=== PATIENT | male | born 1990 | race Caucasian/White ===

== ENCOUNTER 2016-08-07 23:35 | Emergency (ER) | payer OTHER ==
[2016-08-07 23:40] VITALS: RESP 18; TEMP 97.9
[2016-08-08] MEDS ORDERED: ACETAMINOPHEN IV (For NPO) 1,000 MG in EMPTY BAG 1 BAG IVPB STA (00:02)
[2016-08-08] MEDS ORDERED: SODIUM CHLORIDE 0.9% 500 ML IV ONE (00:02)
--- NOTE | 2016-08-08 00:14 | ED ---
General Adult HPI - General Chief complaint: Headache Stated complaint: L Head Pain Time Seen by Provider: 08/07/16 23:45 Source: patient, RN notes reviewed Mode of arrival: ambulatory Limitations: no limitations - History of Present Illness Initial comments: Patient is a 25-year-old male presents to the emergency room for evaluation of left-sided scalp tenderness. Patient states symptoms began about 2 weeks ago. Patient states symptoms began on the left top portion of his scalp and has been radiating down to the left side of his neck. Patient states he's having bilateral neck pain as well. Patient does admit he has a history of migraines. Patient states this does not feel like his normal migraines. Patient denies any throbbing headache. Patient denies changes in vision. Patient denies photophobia or phonophobia. Patient denies any pain while moving his neck. Patient denies any numbness or tingling in his extremities. Patient denies recent head trauma. Patient denies any rashes noted on the scalp. Patient does state that he has a mole on the posterior portion of his scalp that he has had for many years. Patient's girlfriend is present with patient and states that she's noticed it has gotten larger. Patient denies following-up with the time study observer. Patient states every time he touches his scalp it feels very "sensitive". Patient states he is up-to-date on all his immunizations. Patient denies fevers, chills, bodyaches, nausea, vomiting, dizziness. - Related Data Home Medications Medication Instructions Recorded Confirmed No Known Home Medications [No 08/07/16 08/07/16 Known Home Medications] Allergies Allergy/AdvReac Type Severity Reaction Status Date / Time bee pollen Allergy Anaphylaxis Verified 08/07/16 23:40 Review of Systems ROS Statement: Those systems with pertinent positive or pertinent negative responses have been documented in the HPI. ROS Other: All systems not noted in ROS Statement are negative. Past Medical History Past Medical History: Hypertension, Musculoskeletal Disorder Additional Past Medical History / Comment(s): hx. migraines History of Any Multi-Drug Resistant Organisms: None Reported Past Surgical History: Orthopedic Surgery Additional Past Surgical History / Comment(s): right bunionectomy, ACL repair Past Anesthesia/Blood Transfusion Reactions: No Reported Reaction Past Psychological History: Anxiety, Bipolar, Depression Smoking Status: Current every day smoker Past Alcohol Use History: None Reported Past Drug Use History: Marijuana Additional Drug Use History / Comment(s): occasional use - Past Family History Father Family Medical History: No Reported History General Exam - General Exam Comments Initial Comments: Sitting in exam room in no acute distress. Limitations: no limitations General appearance: alert, in no apparent distress Head exam: Present: atraumatic, normocephalic, normal inspection Eye exam: Present: normal appearance, PERRL, EOMI Pupils: Present: normal accommodation ENT exam: Present: normal exam, normal oropharynx, mucous membranes moist, TM's normal bilaterally, normal external ear exam Neck exam: Present: normal inspection, full ROM Respiratory exam: Present: normal lung sounds bilaterally. Absent: respiratory distress Cardiovascular Exam: Present: regular rate, normal rhythm, normal heart sounds Extremities exam: Present: normal inspection Back exam: Present: normal inspection Neurological exam: Present: alert, oriented X3, CN II-XII intact, normal gait Psychiatric exam: Present: normal affect, normal mood Skin exam: Present: warm, dry, intact, normal color, other (Fleshy appearing, irregular, protruding lesion on the posterior parietal portion of the scalp). Absent: rash Course Vital Signs 08/07/16 23:38 Temperature 97.9 F Pulse Rate 120 H Respiratory 18 Rate Blood Pressure 131/85 O2 Sat by Pulse 97 Oximetry Medical Decision Making - Medical Decision Making Patient is a 25-year-old male presents to the emergency room for evaluation of scalp sensitivity and lesion on scalp. Electrolytes show no significant findings. Will have patient follow-up with time study observer and neurologist for further evaluation. Patient states he understands everything that was discussed with him. Return parameters discussed. Case discussed with Dr. Guardado. - Lab Data Result diagrams: 08/08/16 00:10 Lab Results 08/08/16 Range/Units 00:10 Sodium 140 (137-145) mmol/L Potassium 3.9 (3.5-5.1) mmol/L Chloride 101 (98-107) mmol/L Carbon Dioxide 25 (22-30) mmol/L Anion Gap 14 mmol/L BUN 15 (9-20) mg/dL Creatinine 0.80 (0.66-1.25) mg/dL Est GFR (MDRD) Af Amer >60 (>60 ml/min/1.73 sqM) Est GFR (MDRD) Non-Af >60 (>60 ml/min/1.73 sqM) Glucose 96 (74-99) mg/dL Calcium 10.2 (8.4-10.2) mg/dL Magnesium 2.3 (1.6-2.3) mg/dL Total Bilirubin 0.8 (0.2-1.3) mg/dL AST 27 (17-59) U/L ALT 32 (21-72) U/L Alkaline Phosphatase 75 (38-126) U/L Total Protein 8.4 H (6.3-8.2) g/dL Albumin 4.9 (3.5-5.0) g/dL Disposition Clinical Impression: Distal paresthesia, Change in mole Disposition: HOME SELF-CARE Condition: Good Instructions: Paresthesia (ED), Atypical Mole (ED) Additional Instructions: Take Tylenol or Motrin as needed for pain. Please follow-up with primary care provider or neurologist for further evaluation. Please follow-up with time study observer for reevaluation of lesion on scalp. If any new symptom arises or symptoms worsen, return to ER as soon as possible. Referrals: Jet Arthur MD [Primary Care Provider] - 1-2 days Christopher Mireles MD [STAFF PHYSICIAN] - 1-2 days Steffen Angulo MD [STAFF PHYSICIAN] - 1-2 days Time of Disposition: 00:46
[2016-08-08 00:35] LABS: ALT 32 U/L (21-72); AST 27 U/L (17-59); Alkaline Phosphatase 75 U/L (38-126); Anion Gap 14 mmol/L; Blood Urea Nitrogen 15 mg/dL (9-20); Calcium 10.2 mg/dL (8.4-10.2); Carbon Dioxide 25 mmol/L (22-30); Chloride 101 mmol/L (98-107); Glucose 96 mg/dL (74-99); Magnesium 2.3 mg/dL (1.6-2.3); Non-African American GFR(MDRD) >60 (>60 ml/min/1.73 sqM); Potassium 3.9 mmol/L (3.5-5.1); Sodium 140 mmol/L (137-145); Total Bilirubin 0.8 mg/dL (0.2-1.3); Total Protein 8.4 g/dL (6.3-8.2)
[2016-08-08] MEDS ORDERED: predniSONE 20 MG TAB PO STA (00:53)
[2016-08-08 01:12] VITALS: BP 149/98; PULSE 92
== END 2016-08-08 01:11 | disposition home or self-care (01) ==
LOC: EC 23:35
DX: D22.4 Melanocytic nevi of scalp and neck (principal); R20.9 Unspecified disturbances of skin sensation; R51 Headache; F17.200 Nicotine dependence, unspecified, uncomplicated; Z91.030 Bee allergy status
CPT/HCPCS: 36415; 80053; 83735; 99284; 96365; J0131; J7512

== ENCOUNTER 2018-02-28 16:47 | Emergency (ER) | payer OTHER ==
[2018-02-28 17:01] VITALS: BP 142/82; PULSE 86; RESP 17; TEMP 97.9
--- NOTE | 2018-02-28 17:16 | ED ---
Upper Extremity HPI - General Chief Complaint: Extremity Injury, Upper Stated Complaint: hand pain Time Seen by Provider: 02/28/18 16:55 Source: patient, RN notes reviewed Mode of arrival: ambulatory Limitations: no limitations - History of Present Illness Initial Comments: This is a 27-year-old male who presents to the emergency department with chief complaint of right hand pain. Patient states that for the past one week he has been experiencing pain in the third and fourth fingers on his right hand. He states that pain is made worse with bending the fingers. He states that he feels pain all the way up to his elbow with movement of the fingers. He also reports feeling numbness and tingling that shoots down his arm. He denies any injuries or trauma. States he has tried taking ibuprofen a couple of times with minimal relief. 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 Denies recent fevers or chills , chest pain shortness breath, abdominal pain, nausea or vomiting. - Related Data Previous Rx's Medication Instructions Recorded Ibuprofen 600 mg PO Q6HR #20 tablet 02/28/18 Allergies Allergy/AdvReac Type Severity Reaction Status Date / Time bee pollen Allergy Anaphylaxis Verified 08/07/16 23:40 Review of Systems ROS Statement: Those systems with pertinent positive or pertinent negative responses have been documented in the HPI. ROS Other: All systems not noted in ROS Statement are negative. Past Medical History Past Medical History: Hypertension, Musculoskeletal Disorder Additional Past Medical History / Comment(s): hx. migraines History of Any Multi-Drug Resistant Organisms: None Reported Past Surgical History: Orthopedic Surgery Additional Past Surgical History / Comment(s): right bunionectomy, ACL repair Past Anesthesia/Blood Transfusion Reactions: No Reported Reaction Past Psychological History: Anxiety, Bipolar, Depression, PTSD Smoking Status: Current every day smoker Past Alcohol Use History: None Reported Past Drug Use History: Marijuana - Past Family History Father Family Medical History: No Reported History General Exam - General Exam Comments Initial Comments: General: Awake and alert, well-developed; in no apparent distress. HEENT: Head atraumatic, normocephalic. Pupils are equal, round and reactive to light. Extraocular movements intact. Oropharynx moist without erythema or exudate. Neck: Supple. Normal ROM. Cardiovascular: Regular rate and rhythm. No murmurs, rubs or gallops. Chest symmetrical. Respiratory: Lungs clear to auscultation bilaterally. No wheezes, rales or rhonchi. Normal respiratory effort with no use of accessory muscles. Musculoskeletal: Normal range of motion of the right hand and wrist. Pain is elicited with flexion of fingers 3 and 4. There is tenderness on palpation of the flexor tendons of digits 3 and 4. Sensation is intact. Radial pulses are 2 + equal and palpable bilaterally. Skin: [place], warm and dry without rashes or lesions. Neurological: Alert and oriented x3. CN II-XII grossly intact. Speech is fluent and answers are appropriate. No focal neuro deficits. Psychiatric: Normal mood and affect. No overt signs of depression or anxiety noted. Limitations: no limitations Course Vital Signs 02/28/18 16:57 Temperature 97.9 F Pulse Rate 86 Respiratory 17 Rate Blood Pressure 142/82 O2 Sat by Pulse 98 Oximetry Medical Decision Making - Medical Decision Making This is a 27-year-old male who presents to the emergency department with chief complaint of right hand pain. Patient reports pain and shooting numbness/ tingling of digits 3 and 4 in the right hand. Denies any injuries or trauma. X -ray reveals no acute abnormalities. Differential diagnoses include carpal tunnel syndrome or tendinitis. Patient will be given contact information to follow up with orthopedic hand surgeon, Dr. Mcdonald. He will also be provided with a prescription for ibuprofen 600 mg. Patient's vitals are stable and he is in no acute distress. He will be discharged home at this time. He is in agreement with plan and voices understanding. All questions were answered. - Radiology Data Radiology results: report reviewed X-ray right hand impression: Old fifth metacarpal fracture. No acute abnormality. There is probably also old second metacarpal shield fracture. As read by Dr. Quiros. Disposition Clinical Impression: Hand pain, right Disposition: HOME SELF-CARE Condition: Good Instructions: Tendinitis (ED) Additional Instructions: Please follow-up with Dr. Ryan Mcdonald for further evaluation and treatment. Please follow up with primary care provider within 1-2 days. Return to emergency department if symptoms should worsen or any concerns arise. Prescriptions: Ibuprofen 600 mg PO Q6HR #20 tablet Is patient prescribed a controlled substance at d/c from ED?: No Referrals: Jet Arthur MD [Primary Care Provider] - 1-2 days Prakash Mcdonald DO [Doctor of Osteopathic Medicine] - 1-2 days Time of Disposition: 17:43
--- NOTE | 2018-02-28 17:25 | XR ---
EXAMINATION TYPE: XR hand complete RT DATE OF EXAM: 02/28/2018 COMPARISON: NONE HISTORY: Right hand pain TECHNIQUE: 3 views FINDINGS: There is some deformity of the fifth metacarpal consistent with old healed fracture. I see no acute fracture nor dislocation. There are no erosions. IMPRESSION: Old fifth metacarpal fracture. No acute abnormality. There is probably also old second me tacarpal healed fracture.
== END 2018-02-28 18:08 | disposition home or self-care (01) ==
LOC: EC 16:47
DX: M25.541 Pain in joints of right hand (principal); F17.200 Nicotine dependence, unspecified, uncomplicated; Z87.81 Personal history of (healed) traumatic fracture; Z91.030 Bee allergy status
CPT/HCPCS: 99283

== ENCOUNTER 2018-08-31 07:47 | Emergency (ER) | payer OTHER ==
[2018-08-31 08:02] VITALS: TEMP 97.5
[2018-08-31] MEDS ORDERED: SODIUM CHLORIDE 0.9% 500 ML 500 ML IV ONE ×2 (08:05→10:09)
--- NOTE | 2018-08-31 08:25 | ED ---
General Adult HPI - General Chief complaint: Altered Mental Status Stated complaint: Confusion Time Seen by Provider: 08/31/18 08:04 Source: patient, EMS Mode of arrival: EMS Limitations: no limitations - History of Present Illness Initial comments: Dictation was produced using [employer] dictation software. please excuse any grammatical, word or spelling errors. Chief Complaint: 27-year-old malepast medical history presents with altered mental status. History of Present Illness: Patient 27-year-old male. Patient has chronic right knee pain due to ACL tear status post repair. Patient reports that he was complaining of pain and took a pill from his brother. He does not know where the pills from or what it was. He was told that he was in [place]. Patient also had some alcohol yesterday. Approximately 145 patient reports that after that he doesn't remember what happened. He however was awake because he was texting his significant other and was found to be competent and coherent. Patient has no recollection of what happened later. He was brought in by EMS after being found in the parking lot of [employer]. At that time I waited by police and EMS was called. At that time she was alert and oriented 2 out of 4 however since being brought to the emergency department he became a 4 with no issues. Patient has no other complaints at this time. The ROS documented in this emergency department record has been reviewed and confirmed by me. Those systems with pertinent positive or negative responses have been documented in the HPI. All other systems are other negative and/or noncontributory. PHYSICAL EXAM: General Impression: Alert and oriented x3, not in acute distress HEENT: Normocephalic atraumatic, extra-ocular movements intact, pupils equal and reactive to light bilaterally, mucous membranes moist. Cardiovascular: Heart regular rate and rhythm, S1&S2 audible, no murmurs, rubs or gallops Chest: Lungs clear to auscultation bilaterally, no rhonchi, no wheeze, no rales Abdomen: Bowel sounds present, abdomen soft, non-tender, non-distended, no organomegaly Musculoskeletal: Pulses present and equal in all extremities, no peripheral edema Motor: no focal deficits noted Neurological: CN II-XII grossly intact, no focal motor or sensory deficits noted, no gait ataxia, no extremity ataxia Skin: Intact with no visualized rashes Psych: Normal affect and mood ED course: -year-old male presents with altered mental status secondary to unknown drug ingestion. Vital signs upon arrival are within acceptable limits. Normal neuro exam. No gait ataxia. Patient feels well at this time. There is strong clinical suspicion that patient had taken an Ambien unknowingly.Lavatory evaluation obtained. CBC, coag panel, metabolic panel is obtained showing no acute processes. Urinalysis is negative. Toxicology screen is positive for amphetamines and marijuana. Patient given intravenous fluids. He is observed in emergency department for several hours with no change in clinical status. At this point patient likely expressing symptoms from unintentional drug ingestion. Patient however appears stable at this time. Patient clear for discharge. Is understandable and agreeable disposition. EKG interpretation: Ventricular rate 72, normal sinus rhythm, MD interval 140, care is 90, QTC 422. No MD prolongation, no QTC prolongation, no ST or T-wave changes noted. Overall, this EKG is unremarkable - Related Data Home Medications Medication Instructions Recorded Confirmed [place] Unknown Dose 1 tab PO DIRECTED 08/31/18 08/31/18 Allergies Allergy/AdvReac Type Severity Reaction Status Date / Time bee pollen Allergy Anaphylaxis Verified 08/31/18 08:03 Review of Systems ROS Statement: Those systems with pertinent positive or pertinent negative responses have been documented in the HPI. ROS Other: All systems not noted in ROS Statement are negative. Past Medical History Past Medical History: Hypertension, Musculoskeletal Disorder Additional Past Medical History / Comment(s): hx. migraines History of Any Multi-Drug Resistant Organisms: None Reported Past Surgical History: Orthopedic Surgery Additional Past Surgical History / Comment(s): right bunionectomy, ACL repair Past Anesthesia/Blood Transfusion Reactions: No Reported Reaction Past Psychological History: Anxiety, Bipolar, Depression, PTSD Smoking Status: Current every day smoker Past Alcohol Use History: Occasional Past Drug Use History: Marijuana - Past Family History Father Family Medical History: No Reported History General Exam Limitations: no limitations Course Vital Signs 08/31/18 08/31/18 08/31/18 07:49 08:30 09:00 Temperature 97.5 F L Pulse Rate 82 75 86 Respiratory 16 16 16 Rate Blood Pressure 135/98 135/98 135/94 O2 Sat by Pulse 100 100 100 Oximetry Medical Decision Making - Lab Data Result diagrams: 08/31/18 08:33 08/31/18 08:33 Lab Results 08/31/18 08/31/18 08/31/18 Range/Units 08:27 08:33 08:33 WBC 8.6 (3.8-10.6) k/uL RBC 5.36 (4.30-5.90) m/uL Hgb 16.7 (13.0-17.5) gm/dL Hct 49.5 (39.0-53.0) % MCV 92.5 (80.0-100.0) fL MCH 31.3 (25.0-35.0) pg MCHC 33.8 (31.0-37.0) g/dL RDW 13.8 (11.5-15.5) % Plt Count 417 (150-450) k/uL Neutrophils % 50 % Lymphocytes % 38 % Monocytes % 6 % Eosinophils % 3 % Basophils % 1 % Neutrophils # 4.3 (1.3-7.7) k/uL Lymphocytes # 3.3 (1.0-4.8) k/uL Monocytes # 0.5 (0-1.0) k/uL Eosinophils # 0.3 (0-0.7) k/uL Basophils # 0.1 (0-0.2) k/uL PT (9.0-12.0) sec INR (<1.2) APTT (22.0-30.0) sec Sodium (137-145) mmol/L Potassium (3.5-5.1) mmol/L Chloride (98-107) mmol/L Carbon Dioxide (22-30) mmol/L Anion Gap mmol/L BUN (9-20) mg/dL Creatinine (0.66-1.25) mg/dL Est GFR (CKD-EPI)AfAm (>60 ml/min/1.73 sqM) Est GFR (CKD-EPI)NonAf (>60 ml/min/1.73 sqM) Glucose (74-99) mg/dL POC Glucose (mg/dL) 104 H (75-99) mg/dL POC Glu [employer] Cart Repairer ID Valentino Sánchez Calcium (8.4-10.2) mg/dL Total Bilirubin (0.2-1.3) mg/dL AST (17-59) U/L ALT (21-72) U/L Alkaline Phosphatase (38-126) U/L Ammonia 31 H (<30) umol/L Troponin I (0.000-0.034) ng/mL Total Protein (6.3-8.2) g/dL Albumin (3.5-5.0) g/dL Urine Color Urine Appearance (Clear) Urine pH (5.0-8.0) Ur Specific [place] (1.001-1.035) Urine Protein (Negative) Urine Glucose (UA) (Negative) Urine Ketones (Negative) Urine Blood (Negative) Urine Nitrite (Negative) Urine Bilirubin (Negative) Urine Urobilinogen (<2.0) mg/dL Ur Leukocyte Esterase (Negative) Urine Opiates Screen (NotDetected) Ur Oxycodone Screen (NotDetected) Urine Methadone Screen (NotDetected) Ur Propoxyphene Screen (NotDetected) Ur Barbiturates Screen (NotDetected) U Tricyclic Antidepress (NotDetected) Ur Phencyclidine Scrn (NotDetected) Ur Amphetamines Screen (NotDetected) U Methamphetamines Scrn (NotDetected) U Benzodiazepines Scrn (NotDetected) Urine Cocaine Screen (NotDetected) U Marijuana (THC) Screen (NotDetected) Serum Alcohol mg/dL 08/31/18 08/31/18 08/31/18 Range/Units 08:33 08:33 08:33 WBC (3.8-10.6) k/uL RBC (4.30-5.90) m/uL Hgb (13.0-17.5) gm/dL Hct (39.0-53.0) % MCV (80.0-100.0) fL MCH (25.0-35.0) pg MCHC (31.0-37.0) g/dL RDW (11.5-15.5) % Plt Count (150-450) k/uL Neutrophils % % Lymphocytes % % Monocytes % % Eosinophils % % Basophils % % Neutrophils # (1.3-7.7) k/uL Lymphocytes # (1.0-4.8) k/uL Monocytes # (0-1.0) k/uL Eosinophils # (0-0.7) k/uL Basophils # (0-0.2) k/uL PT 10.3 (9.0-12.0) sec INR 1.0 (<1.2) APTT 26.6 (22.0-30.0) sec Sodium 142 (137-145) mmol/L Potassium 4.4 (3.5-5.1) mmol/L Chloride 103 (98-107) mmol/L Carbon Dioxide 27 (22-30) mmol/L Anion Gap 12 mmol/L BUN 15 (9-20) mg/dL Creatinine 0.69 (0.66-1.25) mg/dL Est GFR (CKD-EPI)AfAm >90 (>60 ml/min/1.73 sqM) Est GFR (CKD-EPI)NonAf >90 (>60 ml/min/1.73 sqM) Glucose 100 H (74-99) mg/dL POC Glucose (mg/dL) (75-99) mg/dL POC Glu Gas [employer] Repairer ID Calcium 10.2 (8.4-10.2) mg/dL Total Bilirubin 0.8 (0.2-1.3) mg/dL AST 37 (17-59) U/L ALT 34 (21-72) U/L Alkaline Phosphatase 73 (38-126) U/L Ammonia (<30) umol/L Troponin I <0.012 (0.000-0.034) ng/mL Total Protein 8.3 H (6.3-8.2) g/dL Albumin 4.9 (3.5-5.0) g/dL Urine Color Urine Appearance (Clear) Urine pH (5.0-8.0) Ur Specific [place] (1.001-1.035) Urine Protein (Negative) Urine Glucose (UA) (Negative) Urine Ketones (Negative) Urine Blood (Negative) Urine Nitrite (Negative) Urine Bilirubin (Negative) Urine Urobilinogen (<2.0) mg/dL Ur Leukocyte Esterase (Negative) Urine Opiates Screen (NotDetected) Ur Oxycodone Screen (NotDetected) Urine Methadone Screen (NotDetected) Ur Propoxyphene Screen (NotDetected) Ur Barbiturates Screen (NotDetected) U Tricyclic Antidepress (NotDetected) Ur Phencyclidine Scrn (NotDetected) Ur Amphetamines Screen (NotDetected) U Methamphetamines Scrn (NotDetected) U Benzodiazepines Scrn (NotDetected) Urine Cocaine Screen (NotDetected) U Marijuana (THC) Screen (NotDetected) Serum Alcohol <10 mg/dL 08/31/18 Range/Units 09:57 WBC (3.8-10.6) k/uL RBC (4.30-5.90) m/uL Hgb (13.0-17.5) gm/dL Hct (39.0-53.0) % MCV (80.0-100.0) fL MCH (25.0-35.0) pg MCHC (31.0-37.0) g/dL RDW (11.5-15.5) % Plt Count (150-450) k/uL Neutrophils % % Lymphocytes % % Monocytes % % Eosinophils % % Basophils % % Neutrophils # (1.3-7.7) k/uL Lymphocytes # (1.0-4.8) k/uL Monocytes # (0-1.0) k/uL Eosinophils # (0-0.7) k/uL Basophils # (0-0.2) k/uL PT (9.0-12.0) sec INR (<1.2) APTT (22.0-30.0) sec Sodium (137-145) mmol/L Potassium (3.5-5.1) mmol/L Chloride (98-107) mmol/L Carbon Dioxide (22-30) mmol/L Anion Gap mmol/L BUN (9-20) mg/dL Creatinine (0.66-1.25) mg/dL Est GFR (CKD-EPI)AfAm (>60 ml/min/1.73 sqM) Est GFR (CKD-EPI)NonAf (>60 ml/min/1.73 sqM) Glucose (74-99) mg/dL POC Glucose (mg/dL) (75-99) mg/dL POC Glu Gas [employer] Repairer ID Calcium (8.4-10.2) mg/dL Total Bilirubin (0.2-1.3) mg/dL AST (17-59) U/L ALT (21-72) U/L Alkaline Phosphatase (38-126) U/L Ammonia (<30) umol/L Troponin I (0.000-0.034) ng/mL Total Protein (6.3-8.2) g/dL Albumin (3.5-5.0) g/dL Urine Color Yellow Urine Appearance Clear (Clear) Urine pH 5.5 (5.0-8.0) Ur Specific [place] 1.028 (1.001-1.035) Urine Protein Trace H (Negative) Urine Glucose (UA) Negative (Negative) Urine Ketones Negative (Negative) Urine Blood Negative (Negative) Urine Nitrite Negative (Negative) Urine Bilirubin Negative (Negative) Urine Urobilinogen 2.0 (<2.0) mg/dL Ur Leukocyte Esterase Negative (Negative) Urine Opiates Screen Not Detected (NotDetected) Ur Oxycodone Screen Not Detected (NotDetected) Urine Methadone Screen Not Detected (NotDetected) Ur Propoxyphene Screen Not Detected (NotDetected) Ur Barbiturates Screen Not Detected (NotDetected) U Tricyclic Antidepress Not Detected (NotDetected) Ur Phencyclidine Scrn Not Detected (NotDetected) Ur Amphetamines Screen Detected H (NotDetected) U Methamphetamines Scrn Not Detected (NotDetected) U Benzodiazepines Scrn Not Detected (NotDetected) Urine Cocaine Screen Not Detected (NotDetected) U Marijuana (THC) Screen Detected H (NotDetected) Serum Alcohol mg/dL Disposition Clinical Impression: Altered mental state Disposition: HOME SELF-CARE Condition: Good Instructions (If sedation given, give patient instructions): Altered Mental Status (ED) Is patient prescribed a controlled substance at d/c from ED?: No Referrals: Jet Arthur MD [REFERRING] - 1-2 days Time of Disposition: 10:27
[2018-08-31 08:42] LABS: Glucose,Whole Blood 104 mg/dL (75-99)
[2018-08-31 08:54] LABS: Basophils # (A) 0.1 k/uL (0-0.2); Basophils % (A) 1 %; Eosinophils # (A) 0.3 k/uL (0-0.7); Eosinophils % (A) 3 %; HCT 49.5 % (39.0-53.0); HGB 16.7 gm/dL (13.0-17.5); Lymphocytes # (A) 3.3 k/uL (1.0-4.8); Lymphocytes % (A) 38 %; MCH 31.3 pg (25.0-35.0); MCHC 33.8 g/dL (31.0-37.0); MCV 92.5 fL (80.0-100.0); Mean Platelet Volume 6.6; Monocytes # (A) 0.5 k/uL (0-1.0); Monocytes % (A) 6 %; Neutrophils # (A) 4.3 k/uL (1.3-7.7); Neutrophils % (A) 50 %; Platelet Count 417 k/uL (150-450); RBC 5.36 m/uL (4.30-5.90); RDW 13.8 % (11.5-15.5); WBC 8.6 k/uL (3.8-10.6)
[2018-08-31 09:01] LABS: Partial Thromboplastin Time 26.6 sec (22.0-30.0); Prothrombin Time 10.3 sec (9.0-12.0)
[2018-08-31 09:05] LABS: ALT 34 U/L (21-72); AST 37 U/L (17-59); Albumin 4.9 g/dL (3.5-5.0); Alcohol <10 mg/dL; Alkaline Phosphatase 73 U/L (38-126); Anion Gap 12 mmol/L; Blood Urea Nitrogen 15 mg/dL (9-20); Calcium 10.2 mg/dL (8.4-10.2); Carbon Dioxide 27 mmol/L (22-30); Chloride 103 mmol/L (98-107); Glucose 100 mg/dL (74-99); Potassium 4.4 mmol/L (3.5-5.1); Sodium 142 mmol/L (137-145); Total Bilirubin 0.8 mg/dL (0.2-1.3); Total Protein 8.3 g/dL (6.3-8.2)
--- NOTE | 2018-08-31 09:19 | XR ---
EXAMINATION TYPE: XR chest 1V portable DATE OF EXAM: 08/31/2018 Comparison: 03/10/2012 Clinical History: 27-year-old male confusion, altered mental status Findings: The cardiomediastinal silhouette, aorta, and pulmonary vasculature are within normal limits. Lungs and pleural spaces are clear. Impression: No acute cardiopulmonary process.
[2018-08-31 10:08] LABS: Appearance,Urine Clear (Clear); Bilirubin,Urine Negative (Negative); Blood,Urine Negative (Negative); Color,Urine Yellow; Glucose,Urine (UA) Negative (Negative); Ketones,Urine Negative (Negative); Leukocyte Esterase,Urine Negative (Negative); Nitrite,Urine Negative (Negative); PH, Urine 5.5 (5.0-8.0); Protein,Urine Trace (Negative); Specific Gravity,Urine 1.028 (1.001-1.035)
[2018-08-31 10:18] LABS: Amphetamine Screen,Urine Detected (NotDetected); Barbiturate Screen,Urine Not Detected (NotDetected); Benzodiazepines Screen,Urine Not Detected (NotDetected); Cocaine Screen,Urine Not Detected (NotDetected); Methadone Screen, Urine Not Detected (NotDetected); Opiate Screen,Urine Not Detected (NotDetected); Oxycodone Screen, Urine Not Detected (NotDetected); Phencyclidine Screen,Urine Not Detected (NotDetected); Tricyclic Antidepressant,Urine Not Detected (NotDetected); Urn Cannabinoid Scrn Detected (NotDetected)
[2018-08-31 10:54] VITALS: BP 137/97; PULSE 94; RESP 18
== END 2018-08-31 10:54 | disposition home or self-care (01) ==
LOC: EC 07:47
DX: R41.82 Altered mental status, unspecified (principal); M25.561 Pain in right knee; G89.29 Other chronic pain; F17.200 Nicotine dependence, unspecified, uncomplicated; Z91.030 Bee allergy status; Z98.890 Other specified postprocedural states
CPT/HCPCS: 36415; 93005; 80053; 82140; 84484; 85025; 85610; 85730; 81003; 80306; 71045; 99285; 96360; 96361; G0480; 80320